=== PATIENT | male | born 1985 | race Two or more races ===

== ENCOUNTER 2021-04-30 12:53 | Inpatient (IN) | payer MEDICAID, OTHER ==
[~2021-04-30] VITALS: Ht 180.3 cm; Wt 134.2 kg
[2021-04-30 14:09] LABS: Albumin 4.1 g/dL (3.4-5.0); Anion Gap 6 (5-15); Blood Urea Nitrogen 16 mg/dL (7-18); Calcium 8.5 mg/dL (8.5-10.1); Carbon Dioxide 26 mmol/L (21-32); Chloride 107 mmol/L (98-107); Glucose 119 mg/dL (74-106); Magnesium 2.3 mg/dL (1.6-2.6); Potassium 4.4 mmol/L (3.5-5.1); Sodium 139 mmol/L (136-145)
[2021-04-30 14:17] LABS: Alanine Aminotransferase 333 U/L (16-61); Alkaline Phosphatase 105 U/L (45-117); Aspartate Aminotransferase 381 U/L (15-37); BUN/Creatinine Ratio 14.3; Bilirubin, Total 1.8 mg/dL (0.2-1.0); GFR African American 97 mL/min; GFR Non-African American 80 mL/min; Lipase 21947 U/L (73-393); Total Protein 7.5 g/dL (6.4-8.2)
[2021-04-30 14:33] LABS: Basophils # (auto) 0 10 ^3/uL (0-0.2); Basophils % (auto) 0.2 % (0.0-2.0); Eosinophils # (auto) 0 10 ^3/uL (0-0.8); Eosinophils % (auto) 0.3 % (0.0-7.0); Hematocrit 46.2 % (41.0-53.0); Hemoglobin 16.2 g/dL (13.5-17.5); Lymphocytes # (auto) 1.5 10 ^3/uL (0.4-5.4); Lymphocytes % (auto) 16.2 % (10.0-50.0); Mean Corpuscular Hemoglobin 31.5 pg (28.0-32.0); Mean Corpuscular Volume 89.9 fL (80.0-100.0); Monocytes # (auto) 0.5 10 ^3/uL (0-1.3); Monocytes % (auto) 5.8 % (0.0-12.0); Neutrophils # (auto) 7.3 10 ^3/uL (1.6-8.6); Neutrophils % (auto) 77.5 % (37.0-80.0); Nucleated Red Blood Cells % 0.1 %; Red Blood Cells 5.14 10^6/uL (4.5-5.90); Red Cell Distribution Width 13.5 % (11.8-14.3); White Blood Cell 9.4 10^3/uL (4.4-10.8)
[2021-04-30 14:35] LABS: Amylase 1899 U/L (25-115)
[2021-04-30] MEDS ORDERED: ONDANSETRON HCL 4 MG/2 ML VIAL IV ONE (17:15)
[2021-04-30] MEDS ORDERED: SODIUM CHLORIDE 0.9% 1,000 ML IVB ONE (17:15)
[2021-04-30 17:44] LABS: Urine Bacteria NONE SEEN /hpf (None Seen); Urine Blood Negative /uL (Negative); Urine Specific Gravity 1.022 (1.001-1.035); Urine WBC <1 /hpf (0 - 3)
[2021-04-30] MEDS ORDERED: MORPHINE SULFATE INJECTION 2 MG/ML SYRG IV PRN (19:30)
[2021-04-30] MEDS ORDERED: NITROGLYCERIN 0.4 MG SL TAB SL PRN (19:30)
[2021-04-30] MEDS ORDERED: LACTATED RINGER'S 2,000 ML IV ONE (19:30)
[2021-04-30 20:19] LABS: CRP High Sensitivity 0.46 mg/dL (< 0.3)
[2021-04-30 20:19] LABS: Alcohol, Urine < 3.0 mg/dL (0-10); Amphetamine Screen, Urine NEGATIVE (NEGATIVE); Barbiturate Scree,Urine NEGATIVE (NEGATIVE); Benzodiazephine Screen, Urine NEGATIVE (NEGATIVE); Cannabinoid Screen, Urine NEGATIVE (NEGATIVE); Cocaine Screen, Urine NEGATIVE (NEGATIVE); Opiate Scree,Urine NEGATIVE (NEGATIVE); Phencyclidine Screen, Urine NEGATIVE (NEGATIVE)
[2021-04-30] MEDS: LACTATED RINGER'S 1,000 ML IV SCH (22:23)
[2021-04-30 22:54] VITALS: BP 120/61
[2021-05-01 05:00] VITALS: BP 127/69
[2021-05-01] MEDS: LACTATED RINGER'S 1,000 ML IV SCH ×3 (06:36→22:57)
[2021-05-01 06:38] LABS: Potassium 3.7 mmol/L (3.5-5.1)
[2021-05-01 06:55] LABS: Albumin 3.5 g/dL (3.4-5.0); BUN/Creatinine Ratio 9.9; Bilirubin, Total 2.2 mg/dL (0.2-1.0); Calcium 8.1 mg/dL (8.5-10.1); Total Protein 6.6 g/dL (6.4-8.2)
[2021-05-01 07:40] LABS: Basophils # (auto) 0 10 ^3/uL (0-0.2); Basophils % (auto) 0.2 % (0.0-2.0); Eosinophils # (auto) 0.1 10 ^3/uL (0-0.8); Hematocrit 40.2 % (41.0-53.0); Hemoglobin 14.3 g/dL (13.5-17.5); Lymphocytes # (auto) 1.6 10 ^3/uL (0.4-5.4); Lymphocytes % (auto) 23.2 % (10.0-50.0); Mean Corpuscular Hemoglobin 32.2 pg (28.0-32.0); Mean Corpuscular Hgb Conc. 35.7 g/dL (32.0-36.0); Mean Corpuscular Volume 90.1 fL (80.0-100.0); Monocytes # (auto) 0.5 10 ^3/uL (0-1.3); Monocytes % (auto) 7.3 % (0.0-12.0); Neutrophils # (auto) 4.7 10 ^3/uL (1.6-8.6); Neutrophils % (auto) 67.3 % (37.0-80.0); Nucleated Red Blood Cells % 0.1 %; Red Blood Cells 4.46 10^6/uL (4.5-5.90); Red Cell Distribution Width 13.6 % (11.8-14.3)
[2021-05-01 08:00] VITALS: BP 126/70
[2021-05-01 09:07] VITALS: BP 110/62
[2021-05-01 13:00] VITALS: BP 126/70
[2021-05-01] MEDS: FOLIC ACID 1 MG, MULTIPLE VITAMIN 10 ML, MAGNESIUM SULF SDV 50% 8 MEQ, THIAMINE INJ 100... INJ SCH ×5 (13:31)
[2021-05-01 15:54] LABS: Hepatitis B Surface Antibody Negative
[2021-05-01 16:33] LABS: Hepatitis A Total Antibody Positive
[2021-05-01 16:50] VITALS: BP 107/68
[2021-05-01 17:02] LABS: Hepatitis B Core Total AB Negative; Hepatitis B Surface Antigen Negative (Negative)
[2021-05-01 22:00] VITALS: BP 120/68
[2021-05-02 05:00] VITALS: BP 111/71
[2021-05-02] MEDS: LACTATED RINGER'S 1,000 ML IV SCH ×2 (05:49→13:30)
[2021-05-02 06:23] LABS: Potassium 3.7 mmol/L (3.5-5.1)
[2021-05-02 06:28] LABS: Albumin 3.5 g/dL (3.4-5.0); Bilirubin, Direct 0.7 mg/dL (0-0.2); Bilirubin, Total 1.3 mg/dL (0.2-1.0); Magnesium 1.9 mg/dL (1.6-2.6); Total Protein 6.9 g/dL (6.4-8.2)
[2021-05-02 09:00] VITALS: BP 107/59
[2021-05-02] MEDS: FOLIC ACID 1 MG, MULTIPLE VITAMIN 10 ML, MAGNESIUM SULF SDV 50% 8 MEQ, THIAMINE INJ 100... INJ SCH ×5 (12:00)
[2021-05-02 12:53] VITALS: BP 119/72
[2021-05-05 13:53] LABS: Hepatitis C Antibody Negative (Negative)
== END 2021-05-02 14:45 | disposition home or self-care (01) | DRG 280 ==
LOC: ER 12:53 → OVERFLOW 19:30 → WEST WING 20:09
PROVIDERS: ADMIT Nurse Practitioner Acute Care; ATTEND Internal Medicine
DX: K70.9 Alcoholic liver disease, unspecified (principal); K85.20 Alcohol induced acute pancreatitis without necrosis or infection; E66.01 Morbid (severe) obesity due to excess calories; Z20.822 Contact with and (suspected) exposure to COVID-19; F10.10 Alcohol abuse, uncomplicated; E78.5 Hyperlipidemia, unspecified; Q53.10 Unspecified undescended testicle, unilateral; Z71.41 Alcohol abuse counseling and surveillance of alcoholic; Z82.49 Family history of ischemic heart disease and other diseases of the circulatory system; Z87.891 Personal history of nicotine dependence; Z90.49 Acquired absence of other specified parts of digestive tract; Z68.41 Body mass index [BMI] 40.0-44.9, adult
CPT/HCPCS: 36415; 74176; 80053; 80061; 80076; 80307; 81001; 82150; 83690; 83735; 84132; 84484; 85025; 85049; 86141; 86704; 86706; 86708; 86803; 87340; 87426; 96360; 96361; G0378

== ENCOUNTER 2025-03-29 09:05 | Emergency (ER) | payer MEDICAID ==
[~2025-03-29] VITALS: Ht 180.3 cm; Wt 140.4 kg
[2025-03-29 09:49] VITALS: BP 126/79; PULSE 75; RESP 18; TEMP 97.6; O2SAT 97
--- NOTE | 2025-03-29 10:27 | ED.PDOC ---
Musculoskeletal HPI Comments this is a 39 year old male presenting to the ED with chief complaint of hand numbness/tingling. Patient reports that he has been experiencing bilateral hand numbness and tingling with associated burning, throbbing pain to fingertips for the past 2 weeks, worsening over time. 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 Patient states the symptoms are persistent and only resolve when at work. Patient denies any elbow pain, shoulder pain, wrist pain, falls, injuries, numbness/tingling/weakness radiating up arms, headache, or LOC. Denies any further symptoms or concerns at this time. Chief Complaint: Upper Extremity Time Seen by MD: 10:19 Primary Care Provider: CONNER ANDERSON Reviewed Notes: Nurses Notes, Medications, Allergies Allergies: Coded Allergies: NO KNOWN ALLERGIES (Unverified , 04/30/21) Home Meds No Active Prescriptions or Reported Meds Information Source: Patient Mode of Arrival: Ambulatory Location: Bilateral Extremity Location: Hand Timing: Weeks Prehospital treatment: None Severity: Mild Able to Move Extremity: Yes Bear Weight: Fully Pain: Mild Mechanism: Spontaneous Circumstances: Work Related Onset of Symptoms: Spontaneous Symptoms: Pain DVT Risk Factors: NONE Last Tetanus: Unknown Past Medical History PAST MEDICAL HISTORY: Denies Surgical History: Cholecystectomy Family History Family History: Reviewed,noncontributory to illness, Family hx of DM, Family hx of HTN Social History Smoker: Non-Smoker Alcohol: Denies ETOH Use Drugs: Denies Drug Use Lives In: Home Constitutional: denies: chills, diaphoresis, fatigue, fever, malaise, sweats, weakness, others EENTM: denies: blurred vision, double vision, ear bleeding, ear discharge, ear drainage, ear pain, ear ringing, eye pain, eye redness, hearing loss, mouth pain, mouth swelling, nasal discharge, nose bleeding, nose congestion, nose pain, photophobia, tearing, throat pain, throat swelling, voice changes, others Respiratory: denies: cough, hemoptysis, orthopnea, SOB at rest, shortness of breath, SOB with excertion, stridor, wheezing, others Cardiovascular: denies: chest pain, dizzy spells, diaphoresis, Dyspnea on exertion, edema, irregular heart beat, left arm pain, lightheadedness, palpitations, PND, syncope, others Gastrointestinal: denies: abdomen distended, abdominal pain, blood streaked bowels, constipated, diarrhea, dysphagia, difficulty swallowing, hematemesis, melena, nausea, poor appetite, poor fluid intake, rectal bleeding, rectal pain, vomiting, others Genitourinary: denies: burning, dysuria, flank pain, frequency, hematuria, incontinence, penile discharge, penile sore, pain, testicle pain, testicle swelling, urgency, others Neurological: reports: others (numbness/tingling of bilateral hands); denies: dizziness, fainting, headache, left sided numbness, left sided weakness, numbness, paresthesia, pre-existing deficit, right sided numbness, right sided weakness, seizure, speech problems, tingling, tremors, weakness Musculoskeletal: reports: others (burning pain to bilateral fingertips); denies: back pain, gout, joint pain, joint swelling, muscle pain, muscle stiffness, neck pain Integumetry: denies: bruises, change in color, change in hair/nails, dryness, laceration, lesions, lumps, rash, wounds, others Allergic/Immunocompromised: denies: Difficulty Healing, Frequent Infections, Hives, Itching, others Hematologic/Lymphatic: denies: anemia, blood clots, easy bleeding, easy bruising, swollen glands, others Endocrine: denies: excessive hunger, excessive sweating, excessive thirst, excessive urination, flushing, intolerance to cold, intolerance to heat, unexplained weight gain, unexplained weight loss, others Psychiatric: denies: anxiety, bipolar disorder, depression, hopeless, panic disorder, schizophrenia, sleepless, suicidal, others All Other Systems: Reviewed and Negative Physical Exam General Appearance: No Apparent Distress, Normal HEENT: Normal ENT Inspection, Pharynx Normal, TMs Normal Neck: Full Range of Motion, Non-Tender, Normal, Normal Inspection Respiratory: Chest Non-Tender, Lungs Clear, No Accessory Muscle Use, No Respiratory Distress, Normal Breath Sounds Cardiovascular: No Edema, No JVD, No Murmur, No Gallop, Normal Peripheral Pulses, Regular Rate/Rhythm Breast Exam: Deferred Gastrointestinal: No Organomegaly, Non Tender, No Pulsatile Mass, Normal Bowel Sounds, Soft Genitalia: Deferred Pelvic: Deferred Rectal: Deferred Extremities: No calf tenderness, Normal capillary refill, Normal inspection, Normal range of motion, Non-tender, No pedal edema Musculoskeletal : Location: Bilateral Extremity Location: Hand Apperance: Normal, Other (No gross abnormalities. No erythema, edema, or warmth to touch to dorsal and volar aspect of bilateral hands. MCPs, DIP, and PIP joints normal. Cap < 3 sec. Neurvascular sensation intact) Neurologic: Alert, inhalation therapy aide II-XII nml as Tested, No Motor Deficits, Normal Affect, Normal Mood, No Sensory Deficits Cerebellar Function: Normal Reflexes: Normal Skin: Dry, Normal Color, Warm Lymphatic: No Adenopathy Was a procedure done? Was a procedure done?: No Differential Diagnosis EXT Differential Diagnosis: Other X-Ray, Labs, Meds, VS Vital Signs Date Time Temp Pulse Resp B/P (MAP) Pulse Ox O2 Delivery O2 Flow Rate FiO2 03/29/25 09:49 97.6 75 18 126/79 (95) 97 97.6 03/29/25 09:49 75 18 97 Room Air 03/29/25 09:14 97.2 73 20 123/78 (93) 97 97.2 Lab Test 03/29/25 10:14 Range/Units POC Glucose 94 70-106 mg/dl X-Ray, Labs, Meds, VS Comment Patient arrives alert and oriented, ABC's intact, afebrile, vital signs stable, saturating well in room air Differential diagnosis inlcuded but not limited to: fracture, flexor tendon injury, compartment syndrome, paronychia, cellulitis, carpal tunnel syndrome. Median: Sensation intact to index finger, patient able to flex the distal phalanx of thumb against resistance Ulnar: Sensation intact to volar tip of fifth finger, patient able to spread and push fingers against resistance, patient able to adduct thumb against index finger Radial: Sensation intact over the dorsal web between thumb and index finger, patient able to extend fingers and wrist Patient able to pronate and supinate his forearm Patient is stable for discharge at this time. External notes reviewed. Test results and diagnostic imaging interpreted. All diagnostic findings, discharge care, education and instructions provided Follow-up with PCP in 2 to 3 days Patient verbalized understanding and agreed to treatment plan Vital signs stable, afebrile, no acute distress noted Patient ambulatory with strong steady gait Advised to return precautions for any new or worsening symptoms, return to ER immediately for re-evaluation Patient is aware that the purpose of this visit was for an acute medical emergency requiring emergent stabilization. Chronic conditions, including malignancies have not been ruled out. Patient is instructed to follow up with PCP as directed and discharge instructions for continued care and workup. If unable to arrange follow-up, patient is to return to the emergency department for reassessment. Patient (parent or legal guardian if applicable) was given verbal and written discharge instructions and acknowledges understanding. Additional MDM Review of External, Non-ED records: External records reviewed. History obtained from the patient at bedside Chronic conditions affecting care: None Social determinants of health affecting care: None Consideration of admission (observation or admission): I considered escalation of care to admission for this patient, however given the reassuring workup, the patient is safe for outpatient management. Discussion with the Radiology: No Tests considered but not performed: None Prescription medication considered but not given: None Time of 1ST Reevaluation: 10:30 Reevaluation 1ST: Unchanged Patient Education/Counseling: Diagnosis, Treatment Family Education/Counseling: No Family Present Departure 1 Departure Time of Disposition: 10:31 Impression: Primary Impression: Peripheral neuropathy Qualified Codes: G62.9 - Polyneuropathy, unspecified Disposition: 01 HOME / SELF CARE / HOMELESS Condition: Fair e-Prescriptions Gabapentin (Gabapentin) 100 Mg Cap 1 CAP PO TID for 30 Days, #90 CAP 0 Refills Prov: MARGE SEWELL NP 03/29/25 Ibuprofen (Ibuprofen) 600 Mg Tab 1 TAB PO TID for 10 Days, #30 TAB 0 Refills Prov: MARGE SEWELL NP 03/29/25 Critical Care Note Critical Care Time?: No Stability Stability form required: No Heart Score Heart Score: Heart Score Response (Comments) Value History N/A 0 EKG N/A 0 Age N/A 0 Risk Factors N/A 0 Troponin N/A 0 Total 0 I personally scribed for MARGE SEWELL NP ([email or web address]) on 03/29/25 at 10:27. Electronically submitted by Alex Mohan ([email or web address]). MARGE SEWELL NP March 29, 2025 10:27
[2025-03-29] MEDS ORDERED: IBUP-1454 PO (10:32)
[2025-03-29] MEDS ORDERED: GABA-1308 PO (10:32)
== END 2025-03-29 10:42 | disposition home or self-care (01) ==
LOC: ER 09:05
DX: G62.9 Polyneuropathy, unspecified (principal); Z90.49 Acquired absence of other specified parts of digestive tract
CPT/HCPCS: 82947; 82962